=== PATIENT | male | born 1990 | race African-American/Black ===

== ENCOUNTER 2019-08-16 03:19 | Emergency (ER) | payer MEDICAID, OTHER ==
[~2019-08-16] VITALS: Ht 185.4 cm; Wt 90.7 kg
[2019-08-16 03:58] LABS: BASOPHILS # (AUTO) 0.1 /CMM (0.0-0.2); BASOPHILS % (AUTO) 0.5 % (0.0-2.0); EOSINOPHILS % (AUTO) 0.3 % (0.0-6.0); HEMATOCRIT 44 % (39-51); HEMOGLOBIN 15.2 g/dL (13.5-17.5); LYMPHOCYTES # (AUTO) 0.6 /CMM (0.8-4.8); LYMPHOCYTES % (AUTO) 4.9 % (20.0-44.0); MEAN CORPUSCULAR HGB CONC 34 g/dl (31.0-36.0); MEAN CORPUSCULAR VOLUME 86 fL (80-96); MONOCYTES # (AUTO) 1.5 /CMM (0.1-1.30); MONOCYTES % (AUTO) 12.6 % (2.0-12.0); NEUTROPHILS # (AUTO) 9.7 /CMM (1.8-8.9); NEUTROPHILS % (AUTO) 81.7 % (43.0-81.0); PLATELET COUNT (AUTO) 211 /CMM (150-450); RED BLOOD CELL COUNT(AUTO) 5.19 MIL/uL (4.5-6.0); WHITE BLOOD COUNT (AUTO) 11.9 K/uL (4.3-11.0)
[2019-08-16] MEDS ORDERED: MORPHINE SULFATE INJ 2 MG/ML DISP.SYRIN IV ONE ×3 (04:00→08:00)
[2019-08-16] MEDS ORDERED: ONDANSETRON HCL/PF - ER 4 MG/2 ML VIAL IV ONE (04:00)
[2019-08-16] MEDS ORDERED: TDAP [DIPH/PERTUSSIS/TET] 0.5 ML VIAL IM ONE (04:00)
[2019-08-16 04:05] LABS: CALCIUM, SERUM 8.8 mg/dL (8.5-10.1); CREATININE 1.1 mg/dL (0.6-1.3); POTASSIUM 4.3 mmol/L (3.5-5.1)
--- NOTE | 2019-08-16 04:20 | NUR ---
ANY. TO ER BED 11. AAOX4. NO RESP DISTRESS NOTED, BREATHING EVEN AND UNLABORED. C/O NECK, CHEST AND BACK PAIN S/P FALL. PT REPORTS PAIN 10/10. PT REPORTS HE FELL OFF A LADDER TRYING TO GET INTO HIS APARTMENT BECAUSE HE LEFT HIS KEYS AND HIS ROOMMATES ARE NOT HOME. PT REPORTS KNOCKING OUT. NECK NOTED ROM D/T PAIN. NOTED A 3 CM LAC ON THE TOP OF HIS HEAD. PT PLACED ON SOFT CERVICAL COLLAR. MD WAS AT BEDSIDE FOR EVAL. ORDERS RECEIVED NOTED AND CARRIED OUT. IV LINE OBTAINED ON R AC 16G. BLOOD DRAWN AND GIVEN TO [facility] AT BEDSIDE.
[2019-08-16] MEDS ORDERED: IOHEXOL-300 100 ML VIAL IV ONE (05:05)
--- NOTE | 2019-08-16 05:21 | NUR ---
PT BACK FROM CT. R AC 16G IV DISCONTINUED D/T INFILTRATION, ARM ELEVATED. STARTED NEW LINE ON L AC 18G
--- NOTE | 2019-08-16 05:30 | NUR ---
PT SOF CERVICAL COLAR CHANGED TO HARD CERVICAL COLLAR PER MD ORDER
[2019-08-16] MEDS ORDERED: IV NS 0.9% 1,000 ML IV STA (05:35)
[2019-08-16] MEDS ORDERED: MORPHINE SULFATE INJ 2 MG/ML DISP.SYRIN ONE (05:38)
[2019-08-16] MEDS ORDERED: MORPHINE SULFATE INJ 4 MG/ML DISP.SYRIN ONE ×2 (05:38→08:00)
[2019-08-16] MEDS ORDERED: IV NS 0.9% 1,000 ML IV PRN (06:00)
--- NOTE | 2019-08-16 06:25 | NUR ---
MD AT BEDSIDE. O2 VIA NC INCREASED TO 4LPM FROM 2LPM PER MD ORDER
--- NOTE | 2019-08-16 06:34 | NUR ---
SPOKE WITH VIANCA CHOI FROM [facility] TRANSFER LINE. ADVISED TO FAX CLINICAL INFORMATION, BUT HOSPITAL IS AT [facility]
--- NOTE | 2019-08-16 06:43 | NUR ---
DR. RUDOLPH ON THE PHONE WITH DR. XAVIER FROM [place]
--- NOTE | 2019-08-16 06:55 | NUR ---
PT ACCEPTED BY DR. XAVIER AT [facility]. SPOKE WITH JIMBO LAU AND FAXED OVER CLINICAL INFORMATION
--- NOTE | 2019-08-16 07:01 | NUR ---
CALLED [facility] FOR TRANSPORTATION. ETA 30-45MIN
--- NOTE | 2019-08-16 07:04 | NUR ---
SPOKE WITH JUDI CHOI FROM [facility] AND INFORMED OF ETA. PER REQUEST, CALL [facility] FOR REPORT WHEN PT IS PICKED UP FOR TRANSFER.
--- NOTE | 2019-08-16 07:18 | NUR ---
ASSUMED CARE REPORT GIVEN BY EVA Gipson RN
[2019-08-16 07:39] VITALS: BP 154/74
--- NOTE | 2019-08-16 07:44 | NUR ---
PATIENT AWAKE ALERT ABLE TO MOVE MINIMAL UPPER AND LOWER EXT. COMPLAIN OF PAIN TO CHEST NOTED PATIENT ON 3L O2 ,MD AWARE PATIENT COMPLAIN OF PAIN WITH ORDER ,VITALS TAKEN AND RECORDED
[2019-08-16] MEDS ORDERED: ONDANSETRON HCL/PF 4 MG/2 ML VIAL ONE (08:00)
[2019-08-16] MEDS ORDERED: ONDANSETRON HCL/PF 4 MG/2 ML VIAL IV ONE (08:00)
--- NOTE | 2019-08-16 08:30 | NUR ---
Called report to [facility] [phone] Mitali Barros ([facility] ) patient alert vitals stable ,pain level to 6/10 chest pain remain o2 @ 2L transfer to [facility]
== END 2019-08-16 08:30 ==
LOC: ER 03:20
DX: S12.690A Other displaced fracture of seventh cervical vertebra, initial encounter for closed fracture (principal); S22.42XA Multiple fractures of ribs, left side, initial encounter for closed fracture; S22.20XA Unspecified fracture of sternum, initial encounter for closed fracture; S22.018A Other fracture of first thoracic vertebra, initial encounter for closed fracture; S22.028A Other fracture of second thoracic vertebra, initial encounter for closed fracture; S22.038A Other fracture of third thoracic vertebra, initial encounter for closed fracture; S22.048A Other fracture of fourth thoracic vertebra, initial encounter for closed fracture; S22.058A Other fracture of T5-T6 vertebra, initial encounter for closed fracture; S01.01XA Laceration without foreign body of scalp, initial encounter; S27.0XXA Traumatic pneumothorax, initial encounter; M62.82 Rhabdomyolysis; F10.10 Alcohol abuse, uncomplicated; F12.10 Cannabis abuse, uncomplicated; F17.200 Nicotine dependence, unspecified, uncomplicated; Y90.9 Presence of alcohol in blood, level not specified; W11.XXXA Fall on and from ladder, initial encounter; Y93.89 Activity, other specified; Y92.89 Other specified places as the place of occurrence of the external cause; Y99.8 Other external cause status
CPT/HCPCS: 36415; 70450; 71260; 72125; 74177; 80048; 82550; 85025; 85730; 90471; 90715; 93005; 96374; 96375; 96376; 99291; A6403; J2270 ×3; J2405 ×2; J7030; L0172; Q9967